=== PATIENT | female | born 1930 | race Caucasian/White ===

== ENCOUNTER → 2019-05-30 | Outpatient (CLI) | payer MEDICARE | LOC: COL.RAD 12:28 | DX: Z01.812 Encounter for preprocedural laboratory examination (principal); D31.61 Benign neoplasm of unspecified site of right orbit; G31.9 Degenerative disease of nervous system, unspecified | CPT/HCPCS: Q9967 ==

== ENCOUNTER 2019-11-06 06:10 | Emergency (ER) | payer MEDICARE ==
[~2019-11-06] VITALS: Ht 152.4 cm; Wt 45.5 kg
[2019-11-06 06:11] VITALS: TEMP 97.8
[2019-11-06 06:50] LABS: BASO # 0.1 (0.0-0.2); BASO % 0.7 % (0.0-2.0); EOS % 0.3 % (0-4.0); GRAN # 7.4 (1.4-6.5); GRAN % 82.9 % (42.2-75.2); HEMATOCRIT 43.6 % (37.0-47.0); HEMOGLOBIN 14.6 g/dl (12.5-16.0); LYMPH # 0.9 (1.2-3.4); LYMPH % 9.9 % (20.0-51.0); MEAN CELL VOLUME 99 fl (80.0-100.0); MEAN CORPUSCULAR HEMOGLOBIN 33 pg (27.0-31.0); MEAN CORPUSCULAR HGB CONC 34 g/dl (33.0-37.0); MEAN PLATELET VOLUME 9.1 fl (7.4-10.4); MONO # 0.5 (0.1-0.6); MONO % 5.5 % (1.7-9.3); PLATELET COUNT 319 K/mm3 (130-400); RED BLOOD COUNT 4.42 M/mm3 (4.10-5.30)
[2019-11-06 07:06] LABS: ALBUMIN 4.1 gm/dL (3.5-5.0); BILIRUBIN,TOTAL 0.9 mg/dL (0.0-1.0); CALCIUM 9.8 mg/dL (8.4-10.2); CREATININE, serum 0.49 (0.52-1.25); POTASSIUM 4.7 mmol/L (3.4-5.0); TOTAL PROTEIN 7.5 gm/dL (6.4-8.2)
[2019-11-06] MEDS ORDERED: NORCO 325 MG-7.1 TAB PO (07:24)
[2019-11-06] MEDS ORDERED: ULTRAM 50MG TAB50 MG PO (07:24)
[2019-11-06 08:11] LABS: PH 5 (5-8); SQUAMOUS EPITHELIAL None Seen /hpf; URINE APPEARANCE Hazy; URINE BACTERIA Moderate /hpf; URINE BILIRUBIN Negative (NEGATIVE); URINE BLOOD 1+ (NEGATIVE); URINE COLOR Yellow; URINE GLUCOSE Negative (NEGATIVE); URINE KETONE 1+ (NEGATIVE); URINE LEUKOCYTE ESTERASE Negative (NEGATIVE); URINE NITRATE Positive (NEGATIVE); URINE PROTEIN(semi-quant) 1+ (NEGATIVE)
[2019-11-06] MEDS ORDERED: CEFTIN500 MG PO (08:39)
[2019-11-06] MEDS ORDERED: PERCOCET 325 MG1 TA2 PO ×2 (08:40→08:41)
[2019-11-06 09:01] VITALS: BP 150/103; PULSE 79
[2019-11-06 13:31] LABS: COLLECTION METHOD CATHETER
== END 2019-11-06 08:55 | disposition home or self-care (01) ==
LOC: COL.ER 06:10
PROVIDERS: Emergency Medicine
DX: M48.56XA Collapsed vertebra, not elsewhere classified, lumbar region, initial encounter for fracture (principal); N39.0 Urinary tract infection, site not specified; M81.0 Age-related osteoporosis without current pathological fracture; C85.90 Non-Hodgkin lymphoma, unspecified, unspecified site; Z79.891 Long term (current) use of opiate analgesic; Z96.643 Presence of artificial hip joint, bilateral; Z96.653 Presence of artificial knee joint, bilateral; Z98.1 Arthrodesis status

== ENCOUNTER 2019-11-08 16:32 | Inpatient (IN) | payer MEDICARE ==
[~2019-11-08] VITALS: Ht 152.4 cm; Wt 45.8 kg
[~2019-11-08 16:32] MED LIST: CEFTIN500 MG PO; NORCO 325 MG-7.1 TAB PO; PERCOCET 325 MG1 TA2 PO; ULTRAM 50MG TAB50 MG PO
[2019-11-08 17:01] LABS: COLLECTION METHOD CLEAN CATCH
[2019-11-08 17:13] LABS: MUCOUS Present /lpf; PH 6 (5-8); SQUAMOUS EPITHELIAL 0-2 /hpf; URINE APPEARANCE Clear; URINE BACTERIA None Seen /hpf; URINE BILIRUBIN Negative (NEGATIVE); URINE BLOOD 1+ (NEGATIVE); URINE COLOR Yellow; URINE GLUCOSE Negative (NEGATIVE); URINE KETONE 1+ (NEGATIVE); URINE LEUKOCYTE ESTERASE Negative (NEGATIVE); URINE NITRATE Negative (NEGATIVE); URINE PROTEIN(semi-quant) 3+ (NEGATIVE); URINE UROBILINOGEN Negative (NEGATIVE)
[2019-11-08 17:48] LABS: BASO % 0.2 % (0.0-2.0); GRAN # 10.8 (1.4-6.5); GRAN % 82.1 % (42.2-75.2); HEMATOCRIT 48.2 % (37.0-47.0); LYMPH # 0.9 (1.2-3.4); LYMPH % 6.9 % (20.0-51.0); MEAN CORPUSCULAR HGB CONC 35 g/dl (33.0-37.0); MEAN PLATELET VOLUME 8.8 fl (7.4-10.4); MONO # 1.4 (0.1-0.6); MONO % 10.3 % (1.7-9.3); PLATELET COUNT 375 K/mm3 (130-400); RED BLOOD COUNT 5.17 M/mm3 (4.10-5.30); REDCELL DISTRIBUTION WIDTH-CV 13.9 % (11.5-14.5)
[2019-11-08 17:49] LABS: ARTERIAL BLD GAS TCO2 CT 22.3; ARTERIAL BLOOD GAS BASE EXCESS -1.3 (-2-2); ARTERIAL BLOOD GAS HCO3 21.3 meq/L (22-26); ARTERIAL BLOOD GAS PO2 60.4 mmHg (80-100); ARTERIAL BLOOD GAS pH 7.46 (7.35-7.45)
[2019-11-08 17:56] LABS: MEAN CELL VOLUME 93 fl (80.0-100.0); MEAN CORPUSCULAR HEMOGLOBIN 33 pg (27.0-31.0)
[2019-11-08 17:58] LABS: HEMOGLOBIN 16.9 g/dl (12.5-16.0)
[2019-11-08 17:59] LABS: ALBUMIN 4.1 gm/dL (3.5-5.0); BILIRUBIN,TOTAL 1.2 mg/dL (0.0-1.0); CALCIUM 10.4 mg/dL (8.4-10.2); CREATININE, serum 0.58 (0.52-1.25); POTASSIUM 3.8 mmol/L (3.4-5.0); TOTAL PROTEIN 7.4 gm/dL (6.4-8.2)
[2019-11-08] MEDS ORDERED: TYLENOL 325MG325 MG PO (20:49)
[2019-11-08 21:10] VITALS: BP 145/89; PULSE 102; TEMP 98.1
--- NOTE | 2019-11-08 21:35 | NUR ---
ARRIVED FROM ER PER W/C. NOTIFIED ORALIA HAZEL OF PT'S ARRIVAL. NEW ORDER RECEIVED TO TRANSFER PT TO MEDICAL DEPARTMENT. NOTIFIED PLATE MOLDER AND CHARGE NURSE. PT ORIENTED. VERY SLEEPY. O2 2L NC. IV #22G TO LT WRIST WITH LR PER GRAVITY. ASSESSMENT 1 COMPLETED BY CARMEN GRIMES. PT HAS TRANSIENT NAUSEA. ER HAD JUST GIVEN ZOFRAN PRIOR TO TRANSFER.
--- NOTE | 2019-11-08 21:57 | NUR ---
PT TRANSFERRED TO ROOM 304 FOR RESP ISOLATION. ADELA PRATHER GIVEN ADDITIONAL REPORT. CHANGED IVF'S TO NS AT 125CC/HR TO LT ARM. PT VERY FATIGUED BUT ORIENTED.
[2019-11-08 22:25] LABS: PROTHROMBIN TIME 11.1 SECONDS (9.7-12.8)
[2019-11-09] VITALS (7 sets, daily range): BP systolic 110–142; BP diastolic 70–84; PULSE 69–102; TEMP 97.3–98.7
[2019-11-09] MEDS ORDERED: PERCOCET 325 MG1 TA2 PO (02:45)
[2019-11-09] MEDS ORDERED: ZOFRAN 4MG T4 MG/TAB PO (02:45)
[2019-11-09 03:19] LABS: PRE ALBUMIN 17.9 mg/dL (17.6-36.0)
[2019-11-09 03:35] LABS: ARTERIAL BLD GAS O2 SATURATION 95.1 % (92-100); ARTERIAL BLD GAS TCO2 CT 21.3; ARTERIAL BLOOD GAS HCO3 20.4 meq/L (22-26); ARTERIAL BLOOD GAS PCO2 29.6 mmHg (35-45); ARTERIAL BLOOD GAS PO2 74.4 mmHg (80-100); ARTERIAL BLOOD GAS pH 7.46 (7.35-7.45)
[2019-11-09 03:49] LABS: TROPONIN-I 0.068 ng/mL (0.000-0.035)
[2019-11-09 09:16] LABS: BASO % 0.1 % (0.0-2.0); GRAN % 85.3 % (42.2-75.2); HEMATOCRIT 45.7 % (37.0-47.0); HEMOGLOBIN 15.6 g/dl (12.5-16.0); LYMPH # 0.9 (1.2-3.4); LYMPH % 7.1 % (20.0-51.0); MEAN CELL VOLUME 94 fl (80.0-100.0); MEAN CORPUSCULAR HEMOGLOBIN 32 pg (27.0-31.0); MEAN CORPUSCULAR HGB CONC 34 g/dl (33.0-37.0); MEAN PLATELET VOLUME 8.8 fl (7.4-10.4); MONO # 0.9 (0.1-0.6); MONO % 6.9 % (1.7-9.3); PLATELET COUNT 316 K/mm3 (130-400); RED BLOOD COUNT 4.85 M/mm3 (4.10-5.30); REDCELL DISTRIBUTION WIDTH-CV 13.8 % (11.5-14.5)
[2019-11-09 09:27] LABS: ALBUMIN 3.6 gm/dL (3.5-5.0); BILIRUBIN,TOTAL 1.1 mg/dL (0.0-1.0); CALCIUM 9.5 mg/dL (8.4-10.2); CREATININE, serum 0.55 (0.52-1.25); POTASSIUM 3.6 mmol/L (3.4-5.0); TOTAL PROTEIN 6.7 gm/dL (6.4-8.2)
--- NOTE | 2019-11-09 09:53 | NUR ---
Pt sleeping upon entry, very hard to arouse Pt will respond when gently shaken and answers verbally, does not open her eyes in response to stimuli. FLACC scale indicates no pain at this time. Shift assessments complete, left Pt sleeping, call litght in reach, bed in lowest position.
--- NOTE | 2019-11-09 10:30 | NUR ---
PT NOTALERT ENOUGH TO TAKE INHALER
[2019-11-09] MEDS ORDERED: CYMBALTA 20MG20 MG PO (11:51)
--- NOTE | 2019-11-09 16:14 | NUR ---
Manager Of International contacted patient's RN, Dawson who advised patient has been resting and is not sure she could take a phone call. Patient is in contact isolation, pending COVID results. SW contacted patient's daughter in law, Leighann (ph#[phone]) to discuss discharge planning. Leighann states she is to patient's son/DPOA, Beto (ph#[phone]). Patient lives alone in [place] and sees Dr. Mcneill for primary care. Leighann picks up patient's medications from [facility]. Patient uses a walker and is mostly independent with ADLS, but also has private duty services from [facility] to assist with cleaning, laundry, and one meal a day. Leighann reports patient had DPOA and DNR. Patient's son, Beto emailed documents to ALEX. ALEX printed docs and placed them on chart. Patient to work with PT/OT pending COVID results. SW to continue to follow for discharge needs.
--- NOTE | 2019-11-09 18:15 | NUR ---
Pt resting in the room today, has some C/O pain in her back. Pt was hard to arouse from sleep this morning as the day progressed she became easier to awaken and aware. Pt had no other complaints andf no other issues noted. VS have remained stable.
--- NOTE | 2019-11-09 19:45 | NUR ---
Received report from Dawson. See patient awake, lying in bed. She complains of back pain. Tylenol was given. She is alert but partially oriented. She knows her name and birthday but when asked where is she right now and what is the date she said I don't know. She can follow command but have a hard time moving her body due to back pain. Call light within reach. Bed alarm on
--- NOTE | 2019-11-09 23:20 | NUR ---
Patient is incontinent. Called Alberta GEIGER if I can do straight catheter to get urine specimen for S. Pneumoniae Urine AG and Legionella Urinary antigen and she said to call lab if we can add it to a urine specimen she had yesterday. This nurse called lab and said that they don't have it anymore and just collect a new one. Informed Alberta about what the lab said and she ordered to have a straight catheter to get a specimen.
--- NOTE | 2019-11-09 23:25 | NUR ---
Explained procedure to the patient that we will do a straight catheter to get a urine sample. Patient agreed and verbalized understanding. Sterile technique done during straight catheterization. Jeff GRIMES was on the bedside to assist. We were able to get a urine specimen and total urine output was 550ml. Diapers were changed. Repositioned patient and put pillow on her left side and put pillow on her legs to elevate her feet.
[2019-11-10 04:18] VITALS: BP 118/78; PULSE 89; TEMP 97.6
--- NOTE | 2019-11-10 05:31 | NUR ---
Covid result came back negative. Informed Alberta TIERNEY and Gibran SalvadorManufacturing Engineering Technician regarding the result and patient will be transferred to . [facility]. Informed patient that we will transfer her to another room since her covid result is negative and she just replied "whatever".
--- NOTE | 2019-11-10 07:04 | NUR ---
This nurse called the DPOA of the patient which is Jimbo Benton to inform him that the covid result of the patient is negative and we transferred her to Rm. 307. Informed him that only one visitor is allowed in the whole stay of the patient and he verbalized understanding.
[2019-11-10 07:47] LABS: BASO % 0.2 % (0.0-2.0); EOS % 0.4 % (0-4.0); GRAN # 8.3 (1.4-6.5); GRAN % 79.1 % (42.2-75.2); HEMATOCRIT 39.7 % (37.0-47.0); LYMPH % 9.9 % (20.0-51.0); MEAN CELL VOLUME 97 fl (80.0-100.0); MEAN CORPUSCULAR HEMOGLOBIN 33 pg (27.0-31.0); MEAN CORPUSCULAR HGB CONC 34 g/dl (33.0-37.0); MEAN PLATELET VOLUME 9.1 fl (7.4-10.4); MONO % 9.6 % (1.7-9.3); PLATELET COUNT 284 K/mm3 (130-400); RED BLOOD COUNT 4.11 M/mm3 (4.10-5.30); REDCELL DISTRIBUTION WIDTH-CV 13.8 % (11.5-14.5)
[2019-11-10 08:02] LABS: ALBUMIN 2.9 gm/dL (3.5-5.0); BILIRUBIN,TOTAL 0.7 mg/dL (0.0-1.0); CALCIUM 8.8 mg/dL (8.4-10.2); CREATININE, serum 0.63 (0.52-1.25); POTASSIUM 3.2 mmol/L (3.4-5.0); TOTAL PROTEIN 5.5 gm/dL (6.4-8.2)
[2019-11-10 08:35] LABS: HEMOGLOBIN 13.4 g/dl (12.5-16.0)
--- NOTE | 2019-11-10 09:19 | NUR ---
Pt awake and arlert this morning, more responsive today, has C/O pain in her back, shift assessments complete, left Pt call light in reach, bed in lowest psoition.
[2019-11-10 12:32] VITALS: BP 130/73; PULSE 68; TEMP 98.7
[2019-11-10 15:00] VITALS: BP 131/58; PULSE 81; TEMP 99
--- NOTE | 2019-11-10 19:22 | NUR ---
Pt resting in the room, has had C/O pain during the day, medications given for relief, Pt not eating well, talked to Pt's son, he indicated that she might do better with a chocolate shake. VS have remained stable.
--- NOTE | 2019-11-10 20:00 | NUR ---
Received report from CRESCENCIO Osman. Pt A/O x4, able to state , current year, place and situation. Meds administered. C/O low back pain, pt receiving prn tylenol. Made pt comfortable in bed. Tele monitor in place. INT to LW intact, flushed, dressing CDI. Denies SOB, on 1LO2NC. Needs met at this time. Call light within reach.
[2019-11-10 20:03] VITALS: BP 145/62; PULSE 95; TEMP 97.5
[2019-11-11] VITALS (7 sets, daily range): BP systolic 84–149; BP diastolic 55–84; PULSE 68–92; TEMP 97.6–99.6
[2019-11-11 06:31] LABS: BASO % 0.2 % (0.0-2.0); EOS # 0.2 (0.0-0.7); EOS % 1.5 % (0-4.0); GRAN # 10.9 (1.4-6.5); GRAN % 81.9 % (42.2-75.2); HEMATOCRIT 39.4 % (37.0-47.0); HEMOGLOBIN 13.1 g/dl (12.5-16.0); LYMPH # 1.3 (1.2-3.4); LYMPH % 9.4 % (20.0-51.0); MEAN CELL VOLUME 98 fl (80.0-100.0); MEAN CORPUSCULAR HEMOGLOBIN 32 pg (27.0-31.0); MEAN CORPUSCULAR HGB CONC 33 g/dl (33.0-37.0); MEAN PLATELET VOLUME 9.6 fl (7.4-10.4); MONO # 0.9 (0.1-0.6); MONO % 6.5 % (1.7-9.3); PLATELET COUNT 257 K/mm3 (130-400); RED BLOOD COUNT 4.04 M/mm3 (4.10-5.30); REDCELL DISTRIBUTION WIDTH-CV 13.8 % (11.5-14.5)
[2019-11-11 06:52] LABS: ALBUMIN 2.8 gm/dL (3.5-5.0); BILIRUBIN,TOTAL 0.8 mg/dL (0.0-1.0); CALCIUM 8.6 mg/dL (8.4-10.2); CREATININE, serum 0.54 (0.52-1.25); POTASSIUM 3.3 mmol/L (3.4-5.0); TOTAL PROTEIN 5.5 gm/dL (6.4-8.2)
--- NOTE | 2019-11-11 07:21 | NUR ---
Administered prn tylenol as requested by pt for c/o back pain. turned and repositioned pt, made pt comfortable. needs met. call light within reach.
--- NOTE | 2019-11-11 08:46 | NUR ---
PT IN BED, REPORTS SHE IS TOO WEAK TO MOVE, PT REPORTING LOW BACK PAIN AND STOMACH PAIN 01/30. TYLENOL NOT DUE UNTIL 914. PT KNOWS WHERE SHE IS AND WHO SHE IS, WANTS TO GO HOME, WANTS SON TO BE CONTACTED BUT UNSURE WHERE HE IS OR WHERE HE LIVES. PT LUNG SOUNDS COARSE, BS+, PT HAS PRODUCTIVE COUGH, FLUIDS GOING W/ ZOSYN. NO OTHER NEEDS AT THIS TIME.
--- NOTE | 2019-11-11 09:37 | NUR ---
XRAY CONTACTED ABOUT NEED FOR CHEST XRAY. CALLED MRI AND THEY SAID IT WOULD HAVE TO WAIT UNTIL TUESDAY BECAUSE IT IS FOR LOW BACK PAIN.
--- NOTE | 2019-11-11 14:03 | NUR ---
PT COMPLAINING OF HEADACHE. INFORMED HER SHE COULD NOT HAVE TYLENOL UNTIL 141. PT SAID TRAMADOL HELPED ABDOMINAL PAIN BUT NOT HER BACK OR HEADACHE. PT STATES CONSTIPATION MIGHT BE WHY HER STOMACH HURTS, INFORMED HER THAT SHE HAS HAD COLACE AND MIRALAX TODAY AND THAT WOULD HELP HER HAVE A BOWEL MOVEMENT.
--- NOTE | 2019-11-11 17:20 | NUR ---
NOTIFED BY SYDNEY MOMIN, OF TEMP OF 99.6, PT IS CHILLED BUT FEELS VERY WARM. PT IS ON TYLENOL. INFORMED DARNELL MONREAL. PT INCONTINENT OF URINE, CHANGED SHEETS, PERFORMED KELVIN CARE, CHANGED BRIEF. ATTEMPTED USE OF FEMALE EXTERNAL CATHETER EARLIER IN DAY AND IT WAS NOT HELPFUL IN THIS CASE. PT TELLS STAFF WHEN INCONTINENT 50% OF TIME. PT NOW REPOSITIONED ON L SIDE.
--- NOTE | 2019-11-11 17:27 | NUR ---
PT INCONTINENT OF URINE, EXTERNAL CATHETER WAS NOT EFFECTIVE, PT STILL REPORTING ABD PAIN, SON REPORTS THAT SHE USES SUPPOSITORIES AT HOME, MIRALAX AND COLACE TODAY. NO BM IN 2 DAYS. PT REPORTS HEADACHE IS BETTER THAN IT WAS. TYLENOL NOW SCHEDULED. WATER REFILLED AND AT BEDSIDE, SPUTUM SAMPLE CONTAINER IN ROOM, STILL NO SPUTUM IN CONTAINER. NO OTHER NEEDS AT THIS TIME.
--- NOTE | 2019-11-11 18:16 | NUR ---
PT REFUSING DINNER. PT HAS NOW REFUSED ALL THREE MEALS TODAY. PT DID EAT MILKSHAKE THAT SON BROUGHT IN EARLIER. PT REFUSES ANY SNACKS.
--- NOTE | 2019-11-11 21:06 | NUR ---
Received report from CRESCENCIO Nuñez. Pt resting comfortably in bed. c/o headache and nausea. Requested nausea meds from BENTON Pinzon. PRN zofran administered. Pt incontinent, briefs changed, turned and repositioned. NO skin issues to bserved to sacral area. INT to LW intact, flushed, dressing CDI. Denies SOB, on 1lO2NC. Tele monitor in place. Will monitor pt. Bed alarm set. Call light within reach.
[2019-11-12 03:54] VITALS: BP 139/90; PULSE 67; TEMP 98.1
--- NOTE | 2019-11-12 06:13 | NUR ---
Pt unevetful during this shift. Meds administered. Call light within reach. Bed alarm set.
--- NOTE | 2019-11-12 06:58 | NUR ---
Report given to CRESCENCIO Nuñez.
[2019-11-12 07:37] LABS: BASO % 0.3 % (0.0-2.0); EOS # 0.5 (0.0-0.7); GRAN % 71.3 % (42.2-75.2); HEMATOCRIT 37.8 % (37.0-47.0); HEMOGLOBIN 12.9 g/dl (12.5-16.0); LYMPH # 1.3 (1.2-3.4); LYMPH % 13.6 % (20.0-51.0); MEAN CELL VOLUME 98 fl (80.0-100.0); MEAN CORPUSCULAR HEMOGLOBIN 34 pg (27.0-31.0); MEAN CORPUSCULAR HGB CONC 34 g/dl (33.0-37.0); MEAN PLATELET VOLUME 9.5 fl (7.4-10.4); MONO # 0.9 (0.1-0.6); PLATELET COUNT 301 K/mm3 (130-400); RED BLOOD COUNT 3.85 M/mm3 (4.10-5.30); REDCELL DISTRIBUTION WIDTH-CV 14.2 % (11.5-14.5)
[2019-11-12 07:56] VITALS: BP 141/59; PULSE 69; TEMP 97.5
[2019-11-12 07:56] LABS: CALCIUM 8.9 mg/dL (8.4-10.2); CREATININE, serum 0.51 (0.52-1.25); POTASSIUM 3.5 mmol/L (3.4-5.0)
--- NOTE | 2019-11-12 08:00 | NUR ---
PT IN ROOM, PAIN IN LOWER BACK, MRI READY TO TAKE PT DOWN, WATER AT BEDSIDE, POTASSIUM PROTOCOL IMPLEMENTED, NO OTHER NEEDS AT THIS TIME.
--- NOTE | 2019-11-12 08:42 | NUR ---
PT LEFT FLOOR FOR MRI/CT
[2019-11-12 10:49] VITALS: BP 139/73; PULSE 68; TEMP 98.1
--- NOTE | 2019-11-12 12:15 | NUR ---
PT DID NOT EAT BREAKFAST BUT DRANK A MILKSHAKE THAT HER SON BROUGHT IN. SPEECH THERAPY RECOMMENDING NECTAR THICK LIQUIDS AND BARIUM SWALLOW STUDY.
--- NOTE | 2019-11-12 13:27 | NUR ---
ATTEMPTED TO PAGE ANESTHESIA, STILL NO RESPONSE.
--- NOTE | 2019-11-12 13:56 | NUR ---
PT REFUSING TO EAT, ORDERED MILKSHAKE PER PT REQUEST AND PT IS DRINKING IT
--- NOTE | 2019-11-12 14:47 | NUR ---
Framing Consultant met with patient and her son, Beto to review discharge plan. Hospitalist is recommending post acute rehab. SW reviewed options including SNF, Inpatient Rehab, and Swing Bed. Patient and Beto would like referrals sent to [facility], [facility] and [facility]. SW contacted [facility] and was advised that they are not accepting referrals at this time. SW contacted [facility] and faxed referral. SW contacted Terri at Inpatient Rehab to give referral. SW to continue to follow.
[2019-11-12 16:10] VITALS: BP 114/67; PULSE 80; TEMP 64.4; TEMP 97.4
--- NOTE | 2019-11-12 16:31 | NUR ---
PT HAD A VERY SMALL BM, IT WAS LOOSE, BED BATH PROVIDED, KELVIN CARE PROVIDED, BED CHANGED, FRESH GOWN PROVIDED. PT DID VOMIT WHEN DOING THIS, PT SAID SHE FELT SICK WHEN WE TURNED HER. PT CLEANED, PT STOMACH FEELS BETTER NOW. TYLENOL GIVEN, ZOSYN RUNNING. NO OTHER NEEDS AT THIS TIME.
--- NOTE | 2019-11-12 17:35 | NUR ---
PT ON NECTAR THICK LIQUIDS, SCHEDULED VERTEBROPLASTY TOMORROW, UGI ENDOSCOPY SCHEDULED FOR TUESDAY, ANESTHESIA NEVER RETURNED PAGE, START LR @ MID WHEN PT BECOMES NPO. PT HAD SMALL BM TODAY, EXTERNAL FEMALE CATHETER IN PLACE. REDDENED COCCYX, Q2 TURNS IMPLEMENTED WHEN PT DOES NOT REFUSE SHE HAD DURING THE FIRST HALF OF THE DAY. PT DID NOT EAT BREAKFAST OR LUNCH BUT ATE 2 CHOCOLATE MILKSHAKES AND THEN THREW UP DURING A BED CHANGE. PT COMFORTABLE IN BED AT THIS TIME WITH LIDOCAINE PATCH ON BACK. NO OTHER NEEDS AT THIS TIME.
--- NOTE | 2019-11-12 18:06 | NUR ---
PT HAD SMALL BM, BM OOZING BROWN IN COLOR. KELVIN CARE PROVIDED, NO OTHER NEEDS AT THIS TIME.
[2019-11-12 20:16] VITALS: BP 152/76; PULSE 84; TEMP 97.9
--- NOTE | 2019-11-12 22:38 | NUR ---
PT IN BED WITH HOB AT 30 DEGREE ANGLE, A/O X4, WITH C/O BACK PAIN, WHICH SHE WAS GIVEN SCHEDULED TYLENOL. REPOSITIONED AND CALL LIGHT WITHIN REACH.
[2019-11-12 22:47] VITALS: BP 137/65; PULSE 69; TEMP 97.8
[2019-11-13] VITALS (11 sets, daily range): BP systolic 106–161; BP diastolic 50–85; PULSE 58–83; TEMP 97.5–98.4
--- NOTE | 2019-11-13 07:06 | NUR ---
PT SLEPT WELL WITH NO ISSUES DURING THE NIGHT. CALL LIGHT WITHIN REACH AND BED ALARM ON.
--- NOTE | 2019-11-13 07:16 | NUR ---
REPORT RECIEVED, PT IN BED SLEEPING. NEED CONSENT SIGNED FOR VERTEBROPLASTY FOR TODAY, NO OTHER NEEDS AT THIS TIME.
[2019-11-13 07:59] LABS: BASO % 0.5 % (0.0-2.0); EOS # 0.7 (0.0-0.7); EOS % 11.1 % (0-4.0); GRAN # 3.8 (1.4-6.5); GRAN % 58.3 % (42.2-75.2); HEMOGLOBIN 12.5 g/dl (12.5-16.0); LYMPH # 1.2 (1.2-3.4); LYMPH % 18.4 % (20.0-51.0); MEAN CELL VOLUME 99 fl (80.0-100.0); MEAN CORPUSCULAR HEMOGLOBIN 33 pg (27.0-31.0); MEAN CORPUSCULAR HGB CONC 33 g/dl (33.0-37.0); MEAN PLATELET VOLUME 8.9 fl (7.4-10.4); MONO # 0.7 (0.1-0.6); MONO % 10.5 % (1.7-9.3); PLATELET COUNT 329 K/mm3 (130-400); RED BLOOD COUNT 3.84 M/mm3 (4.10-5.30); REDCELL DISTRIBUTION WIDTH-CV 14.1 % (11.5-14.5)
[2019-11-13 08:13] LABS: CALCIUM 8.9 mg/dL (8.4-10.2); CREATININE, serum 0.6 (0.52-1.25); POTASSIUM 3.8 mmol/L (3.4-5.0)
--- NOTE | 2019-11-13 08:15 | NUR ---
PT IN BED, COMPLAINING OF ABDOMINAL PAIN AND BACK PAIN. PERCOCET ADMINISTERED, TOO EARLY FOR TYLENOL. LIDOCAINE PATCH APPLIED, OTHER MEDICATIONS GIVEN. PT ALERT AND ORIENTED. SALES AND PRODUCTION MANAGER EQUAL, PT STILL CANNOT TURN ON HER OWN DUE TO PAIN. BED IN LOW POSITION, BED ALARM ON, PT CURRENTLY ON LEFT SIDE. NO THER NEEDS AT THIS TIME.
--- NOTE | 2019-11-13 08:45 | NUR ---
PT REPORTED NEEDING TO HAVE A BM BEFORE SHE GOES DOWN FOR VERTEBROPLASTY. PT HAD MEDIUM LOOSE BROWN STOOL, MALODOROUS. PERICARE PROVIDED, NEW BRIEF PROVIDED, CHUCKS CHANGED. PT TAKEN DOWN FOR PROCEDURE. MODEL ARTISTS' CALLED BACK LATER AND STATED SHE HAS HAD 2 MORE BROWN, MALORDOROUS, LOOSE STOOLS. CONTACTED JOCELIN KELLY TO OBTAIN ORDER FOR STOOL SAMPLE FOR POSSIBLE CDIFF.
--- NOTE | 2019-11-13 10:19 | NUR ---
SEE MERGE DOCUMENTATION FOR MEDICATION ADMINISTRATION AND INTRA/POST PROCEDURE SEDATION ASSESSMENTS.
[2019-11-13 11:27] LABS: CHOLESTEROL RISK RATIO 2.9
--- NOTE | 2019-11-13 11:45 | NUR ---
PT BACK IN ROOM. CURRENTLY LAYING FLAT ENCOURAGED BY HOT MILL SHEARER RNPHU. PT COVERED IN BLANKETS, CURRENTLY SLEEPING, TURNED DOWN TO HALF A LITER OF OXYGEN.
--- NOTE | 2019-11-13 13:02 | NUR ---
PHYSICAL THERAPY REPORTED HE GOT PT TO STAND BUT PT WAS UNSTEADY AND UNABLE TO STAND FOR LONG.
--- NOTE | 2019-11-13 13:06 | NUR ---
PT REQUESTED CRACKERS AND WATER, LEFT AT BEDSIDE TABLE REQUESTED BY PT. PT REFUSED LUNCH, PT TURNED TO RIGHT SIDE.
--- NOTE | 2019-11-13 16:04 | NUR ---
Grain Wafer Machine Operator attended clinical rounds with the team. ALEX contacted Be[facility] at [facility] who advised they are able to accept referral. Terri from Inpatient Rehab is still screening referral to see how patient works with therapy. SW to continue to follow.
--- NOTE | 2019-11-13 18:02 | NUR ---
PT LAYING IN BED, REPORTS BACK FEELING BETTER AFTER VERTEBROPLASTY. PT ON NECTAR THICK LIQUIDS. PLAN TO HAVE EGD AND BARIUM SWALLOW STUDY TOMORROW. CONSENT FOR UGI ENDOSCOPY SIGNED ON CHART. PT SLEEPING MOST OF DAY, ATE SOME CRACKERS AND DRANK WATER AND JUICE. POTASSIUM REPLACED. NO OTHER NEEDS AT THIS TIME.
--- NOTE | 2019-11-13 19:30 | NUR ---
Received report from Savannah. Seen patient awake, lying in bed. She denies pain in her back but informed her she will have a Tylenol at 2215H. Briefs were checked and she has urine and bowel movement. Changed briefs, gown and bed linens. On vital signs, patient's SPO2 was 90%, hooked back patient to O2 at 2lpm via NC, SPO2 went up to 93%. Instructed patient she will be NPO by midnight and she verbalizes understanding. She states to remove her crackers and drinks so she will not be able to reach them out.
[2019-11-14] VITALS (7 sets, daily range): BP systolic 118–156; BP diastolic 48–81; PULSE 58–75; TEMP 36.5
--- NOTE | 2019-11-14 00:05 | NUR ---
Patient reports back pain with pain score of 7/10. Tramadol PRN given. Offered repositioning but patient refuses and says she's already comfortable with her position right now.
--- NOTE | 2019-11-14 06:32 | NUR ---
Patient had episodes of back pain. Pain medications were given. Maintained patient on NPO. Had one episode of loose stools at the beginning of the shift. Will endorse to day shift nurse.
[2019-11-14 07:31] LABS: BASO # 0.1 (0.0-0.2); BASO % 0.9 % (0.0-2.0); EOS # 0.7 (0.0-0.7); EOS % 13.3 % (0-4.0); GRAN # 2.6 (1.4-6.5); GRAN % 47.4 % (42.2-75.2); HEMATOCRIT 37.4 % (37.0-47.0); HEMOGLOBIN 12.2 g/dl (12.5-16.0); LYMPH # 1.5 (1.2-3.4); LYMPH % 26.4 % (20.0-51.0); MEAN CELL VOLUME 100 fl (80.0-100.0); MEAN CORPUSCULAR HEMOGLOBIN 33 pg (27.0-31.0); MEAN CORPUSCULAR HGB CONC 33 g/dl (33.0-37.0); MEAN PLATELET VOLUME 8.8 fl (7.4-10.4); MONO # 0.6 (0.1-0.6); MONO % 10.9 % (1.7-9.3); PLATELET COUNT 342 K/mm3 (130-400); RED BLOOD COUNT 3.73 M/mm3 (4.10-5.30); REDCELL DISTRIBUTION WIDTH-CV 14.3 % (11.5-14.5)
[2019-11-14 07:42] LABS: CALCIUM 8.9 mg/dL (8.4-10.2); CREATININE, serum 0.59 (0.52-1.25); POTASSIUM 4.2 mmol/L (3.4-5.0)
--- NOTE | 2019-11-14 08:23 | NUR ---
Patient to endoscopy for scheduled EGD with Dr. Emery. Left unit in bed accompanied by OR Tech. A/O x 4. Attitude calm and pleasant. Does have c/o back pain but denies needing intervention at this time. Phone report given to manager college.
[2019-11-14 14:16] LABS: CLOSTRIDIUM DIFF A/B NEG; CLOSTRIDIUM DIFF A/B INTERP No C.diff present
--- NOTE | 2019-11-14 15:38 | NUR ---
Tappet Adjuster attended clinical rounds with the team. Patient may discharge tomorrow. ALEX followed up with Terri, [facility] Director who advised they are not able to accept referral. ALEX contacted Robbin who advised they can accept tomorrow. ALEX followed up with patient's son, Beto who advised he has talked with Robbin at [facility] and is in agreement with discharge to [facility] as [facility] cannot accept. ALEX will continue to follow.
--- NOTE | 2019-11-14 19:15 | NUR ---
Received report from Jigna. Seen patient awake, lying in bed. Denies pain at the moment. On room air. Call light within reach. Bed alarm on.
[2019-11-15 03:45] VITALS: BP 152/68; PULSE 72; TEMP 97.9
--- NOTE | 2019-11-15 03:51 | NUR ---
Patient complains of pain on his right side of abdomen with pain score of 7/10. Tylenol given earlier. Repositioned patient. Warm blanket applied on her abdomen. Diapers changed.
--- NOTE | 2019-11-15 06:12 | NUR ---
Patient states she doesn't have pain anymore. Still on O2 at 1.5L via NC. Will endorse to day shift nurse.
[2019-11-15 07:24] LABS: BASO % 0.7 % (0.0-2.0); EOS # 0.6 (0.0-0.7); GRAN # 2.9 (1.4-6.5); GRAN % 51.1 % (42.2-75.2); HEMOGLOBIN 11.9 g/dl (12.5-16.0); LYMPH # 1.3 (1.2-3.4); MEAN CELL VOLUME 101 fl (80.0-100.0); MEAN CORPUSCULAR HEMOGLOBIN 33 pg (27.0-31.0); MEAN CORPUSCULAR HGB CONC 33 g/dl (33.0-37.0); MONO # 0.7 (0.1-0.6); MONO % 12.9 % (1.7-9.3); PLATELET COUNT 328 K/mm3 (130-400); RED BLOOD COUNT 3.58 M/mm3 (4.10-5.30); REDCELL DISTRIBUTION WIDTH-CV 14.3 % (11.5-14.5)
[2019-11-15 07:34] LABS: CALCIUM 8.8 mg/dL (8.4-10.2); CREATININE, serum 0.67 (0.52-1.25); POTASSIUM 3.8 mmol/L (3.4-5.0)
[2019-11-15 07:41] LABS: HEMATOCRIT 36.1 % (37.0-47.0)
[2019-11-15] MEDS ORDERED: LIPITOR20 MG PO (07:50)
[2019-11-15] MEDS ORDERED: ASPIRIN E.C. 8181 MG PO (07:50)
[2019-11-15] MEDS ORDERED: SALONPAS1 EACH TP (07:51)
[2019-11-15 08:06] VITALS: BP 140/62; PULSE 63; TEMP 36.5
[2019-11-15 11:51] VITALS: BP 132/66; PULSE 71; TEMP 98.2
--- NOTE | 2019-11-15 12:58 | NUR ---
Drafter Tool Design attended clinical rounds with the team and patient will not discharge today. SW contacted patient's son, Beto to provide update. ALEX contacted Robbin at [facility] and faxed updates. SW to continue to follow.
[2019-11-15 16:49] VITALS: BP 114/62; PULSE 75; TEMP 97.9
[2019-11-15 20:32] VITALS: BP 122/80; PULSE 82; TEMP 98
--- NOTE | 2019-11-15 23:35 | NUR ---
THIS NURSE TOOK THIS PATIENT OVER FROM CRESCENCIO TELLEZ. PATIENT IS ASLEEP UPON ENTERING HER ROOM. PATIENT WOKE TO SLIGHT TOUCH TO HER SHOURLDER. TOOK HS MEDICATIONS WITH NO ISSUES. SHE SAID THAT HER PAIN WAS BETTER AND DOING OK. PATIENT TOLD ME TO STOP ASKING HER STUPID QUESTIONS WHEN I ASKED HER WHERE SHE WAS AND IF SHE COULD TELL ME HER . SHE TOLD ME SHE DOESNT HAVE ANY BIRTHDAYS BECAUSE SHE IS . PATIENT BED ALARM ON AND IN PLACE.
[2019-11-16 01:01] VITALS: BP 139/66; PULSE 69; TEMP 97.6
[2019-11-16 04:00] VITALS: BP 147/83; PULSE 74; TEMP 97.9
--- NOTE | 2019-11-16 04:43 | NUR ---
UPON CHECKING ON THE PATIENT HER RESPIRATORY RATE OF 18 AND PATIENT WOKE UP TO VOICE AND DENIED ANY NEEDS SHE WAS GOING BACK TO SLEEP. PATIENT WAS CHANGED BUT DENIED TURNING TO A DIFFERENT SIDE AT THAT TIME.
--- NOTE | 2019-11-16 05:21 | NUR ---
PATIENT IS RESTING IN BED DOING OK. PATIENT HAS SLEPT THROUGH THE NIGHT. PATIENT DID REPORT SOME PAIN EARLY IN THE MORNING PART OF THE SHIFT SO PRN DOSE OF PAIN MEDICATION WAS GIVEN. PATIENT TOLERATED PAIN MEDICATION WITH NO ISSUES. PATIENT HAS BEEN CHECKED AND CHANGED BUT DID NOT WANT TO BE TURNED FROM SIDE TO SIDE. PATIENT DENIES ANY OTHER NEEDS AT THIS TIME. WILL REPORT OFF TO DAY SHIFT.
[2019-11-16 06:36] LABS: BASO # 0.1 (0.0-0.2); BASO % 1.1 % (0.0-2.0); EOS # 0.5 (0.0-0.7); EOS % 10.1 % (0-4.0); GRAN # 2.1 (1.4-6.5); GRAN % 45.6 % (42.2-75.2); HEMATOCRIT 38.8 % (37.0-47.0); HEMOGLOBIN 12.8 g/dl (12.5-16.0); LYMPH # 1.2 (1.2-3.4); LYMPH % 26.1 % (20.0-51.0); MEAN CELL VOLUME 99 fl (80.0-100.0); MEAN CORPUSCULAR HEMOGLOBIN 33 pg (27.0-31.0); MEAN CORPUSCULAR HGB CONC 33 g/dl (33.0-37.0); MEAN PLATELET VOLUME 8.6 fl (7.4-10.4); MONO # 0.7 (0.1-0.6); MONO % 15.8 % (1.7-9.3); PLATELET COUNT 349 K/mm3 (130-400); RED BLOOD COUNT 3.91 M/mm3 (4.10-5.30); REDCELL DISTRIBUTION WIDTH-CV 14.5 % (11.5-14.5)
[2019-11-16 06:55] LABS: CALCIUM 9.1 mg/dL (8.4-10.2); CREATININE, serum 0.5 (0.52-1.25)
[2019-11-16 07:37] VITALS: BP 147/67; PULSE 55; TEMP 97.9
[2019-11-16] MEDS ORDERED: PROTONIX 40MG T40 MG PO (08:14)
[2019-11-16] MEDS ORDERED: ULTRAM 50MG TAB50 MG PO (09:07)
[2019-11-16] MEDS ORDERED: PERCOCET 325 MG1 TA2 PO (09:07)
--- NOTE | 2019-11-16 09:21 | NUR ---
Patient is alert and oriented. pain at 5/10. neuro check is fine. resting in bed at the moment.
--- NOTE | 2019-11-16 10:20 | NUR ---
The patient is to discharge today, 11/15, to [facility] for skilled stay. Transportation was scheduled around 1500, via [facility]. ALEX informed the patient, her RN, and the patient's son (Beto) via phone. They were all agreeable to the time. ALEX also presented and read the IM form outloud to the patient. The patient verbalized understanding and gave ALEX approval to sign the form on her behalf. ALEX provided her with a copy. No additional needs at this time.
[2019-11-16 10:53] VITALS: BP 147/67; PULSE 55; TEMP 97.9
[2019-11-16 11:16] VITALS: BP 147/67; PULSE 55; TEMP 97.9
--- NOTE | 2019-11-16 11:24 | NUR ---
Patient INT discontinued. Patient discharged to [facility].
[2019-11-16 11:31] VITALS: BP 126/71; PULSE 67; TEMP 98.4
--- NOTE | 2019-11-16 15:53 | NUR ---
Report was given to Latrice, [facility] Nurse. Patient discharged.
== END 2019-11-16 15:30 | disposition home or self-care (01) | DRG 853 ==
LOC: COL.ER 16:32 → JCC 19:13 → MEDICAL 19:13 → PEDS 21:56 → MEDICAL 11-10 05:30
PROVIDERS: Family Medicine; Hospitalist; Nurse Practitioner Family; Physician Assistant; ADMIT Internal Medicine
PROC: 0PU43JZ Supplement Thoracic Vertebra with Synthetic Substitute, Percutaneous Approach (ICD-10-PCS; principal; 2019-11-13)
PROC: 0DB48ZX Excision of Esophagogastric Junction, Via Natural or Artificial Opening Endoscopic, Diagnostic (ICD-10-PCS; 2019-11-14)
PROC: 0DB28ZX Excision of Middle Esophagus, Via Natural or Artificial Opening Endoscopic, Diagnostic (ICD-10-PCS; 2019-11-14)
DX: A41.9 Sepsis, unspecified organism (principal); J96.01 Acute respiratory failure with hypoxia; J18.9 Pneumonia, unspecified organism; I21.A1 Myocardial infarction type 2; C85.90 Non-Hodgkin lymphoma, unspecified, unspecified site; G93.40 Encephalopathy, unspecified; E87.1 Hypo-osmolality and hyponatremia; E46 Unspecified protein-calorie malnutrition; N39.0 Urinary tract infection, site not specified; M48.54XA Collapsed vertebra, not elsewhere classified, thoracic region, initial encounter for fracture; M81.0 Age-related osteoporosis without current pathological fracture; E83.52 Hypercalcemia; K44.9 Diaphragmatic hernia without obstruction or gangrene; E87.6 Hypokalemia; K20.9 Esophagitis, unspecified; M54.9 Dorsalgia, unspecified; G89.29 Other chronic pain; H05.9 Unspecified disorder of orbit; R19.7 Diarrhea, unspecified; K59.00 Constipation, unspecified; K21.9 Gastro-esophageal reflux disease without esophagitis; Z20.828 Contact with and (suspected) exposure to other viral communicable diseases
CPT/HCPCS: 99223-AI; 99231-AI; 99232-AI; 99233-AI; 99239; A9284; C1713; J0696; J1650; J1940; J2250; J2405; J2543; J2704; J3010; J3480; J7030; J7120; Q9967

== ENCOUNTER 2019-12-15 18:36 | Emergency (ER) | payer MEDICARE ==
[~2019-12-15] VITALS: Ht 152.4 cm; Wt 59.1 kg
[~2019-12-15 18:36] MED LIST changes: +ASPIRIN E.C. 8181 MG PO; +CYMBALTA 20MG20 MG PO; +LIPITOR20 MG PO; +PROTONIX 40MG T40 MG PO; +SALONPAS1 EACH TP; +TYLENOL 325MG325 MG PO; +ZOFRAN 4MG T4 MG/TAB PO
[2019-12-15 18:48] VITALS: TEMP 97.8
[2019-12-15 20:04] LABS: TROPONIN-I < 0.012 ng/mL (0.000-0.035)
[2019-12-15 20:16] LABS: BASO # 0.1 (0.0-0.2); BASO % 1.9 % (0.0-2.0); EOS # 0.3 (0.0-0.7); EOS % 7.1 % (0-4.0); GRAN # 2.3 (1.4-6.5); GRAN % 49.2 % (42.2-75.2); HEMATOCRIT 37.6 % (37.0-47.0); HEMOGLOBIN 12.4 g/dl (12.5-16.0); LYMPH # 1.2 (1.2-3.4); LYMPH % 26.6 % (20.0-51.0); MEAN CELL VOLUME 99 fl (80.0-100.0); MEAN CORPUSCULAR HEMOGLOBIN 33 pg (27.0-31.0); MEAN CORPUSCULAR HGB CONC 33 g/dl (33.0-37.0); MEAN PLATELET VOLUME 10.6 fl (7.4-10.4); MONO # 0.7 (0.1-0.6); MONO % 14.3 % (1.7-9.3); PLATELET COUNT 204 K/mm3 (130-400); REDCELL DISTRIBUTION WIDTH-CV 14.8 % (11.5-14.5)
[2019-12-15 20:22] LABS: CALCIUM 9.2 mg/dL (8.4-10.2); CREATININE, serum 0.64 (0.52-1.25); POTASSIUM 4.1 mmol/L (3.4-5.0)
[2019-12-15 22:08] VITALS: BP 130/89; PULSE 84
== END 2019-12-15 22:08 | disposition home or self-care (01) ==
LOC: COL.ER 18:36
PROVIDERS: Emergency Medicine
DX: T17.920A Food in respiratory tract, part unspecified causing asphyxiation, initial encounter (principal); Z79.82 Long term (current) use of aspirin
CPT/HCPCS: J7040

== ENCOUNTER → 2019-12-28 | Outpatient (CLI) | payer MEDICARE | LOC: COL.RAD 12:19 | DX: M41.86 Other forms of scoliosis, lumbar region (principal); M48.54XA Collapsed vertebra, not elsewhere classified, thoracic region, initial encounter for fracture; M48.56XA Collapsed vertebra, not elsewhere classified, lumbar region, initial encounter for fracture ==